=== PATIENT | male | born 1945 | race Caucasian/White ===

== ENCOUNTER 2017-05-11 22:05 | Inpatient (IN) | payer MEDICARE ==
[~2017-05-11] VITALS: Ht 172.7 cm; Wt 108.9 kg
[2017-05-12] MEDS ORDERED: MAG HYDROX/AL HYDROX/SIMETH 30 ML UDC PO PRN (19:00)
[2017-05-12] MEDS ORDERED: MAGNESIUM HYDROXIDE 30 ML UDC PO PRN (19:00)
[2017-05-12] MEDS ORDERED: ACETAMINOPHEN 325 MG TABLET PO PRN (19:00)
[2017-05-12] MEDS ORDERED: LORAZEPAM 0.5 MG TABLET PO PRN (19:00)
[2017-05-12] MEDS ORDERED: GABA600T2 PO (19:02)
[2017-05-12] MEDS ORDERED: ATEN100T PO (19:02)
[2017-05-12] MEDS ORDERED: OMEP20TA5 PO (19:02)
[2017-05-12] MEDS ORDERED: TAMS0.4C34 PO (19:02)
[2017-05-12] MEDS ORDERED: OXYC10TA59 PO (20:08)
[2017-05-12] MEDS: GABAPENTIN 300 MG CAPSULE PO SCH (20:19)
[2017-05-12] MEDS: TAMSULOSIN 0.4 MG CAP.SR.24H PO SCH (21:24)
[2017-05-12 23:14] VITALS: BP 139/70
[2017-05-13] MEDS: HYDROCODONE/APAP 5/325MG 1 EACH TABLET PO PRN (00:50)
[2017-05-13 08:00] VITALS: BP 157/69
[2017-05-13] MEDS: PANTOPRAZOLE 40 MG TABLET.DR PO SCH (08:48)
[2017-05-13] MEDS: NICOTINE PATCH (21MG) 21 MG PATCH.TD24 TD SCH ×2 (08:48→08:50)
[2017-05-13] MEDS: GABAPENTIN 300 MG CAPSULE PO SCH ×3 (08:48→17:03)
[2017-05-13] MEDS: ATENOLOL 50 MG TABLET PO SCH (08:49)
[2017-05-13 09:25] LABS: ALANINE AMINOTRANSFERASE 23 U/L (12-78); ALBUMIN 3.3 g/dL (3.4-5.0); ALKALINE PHOSPHATASE 66 U/L (46-116); ASPARTATE AMINOTRANSFERASE 21 U/L (15-37); BILIRUBIN,TOTAL 0.6 mg/dL (0.2-1.0); CALCIUM, SERUM 8.6 mg/dL (8.5-10.1); CARBON DIOXIDE 25 mmol/L (21-32); CHLORIDE 107 mmol/L (98-107); CREATININE 0.7 mg/dL (0.6-1.3); GLUCOSE 105 mg/dL (74-106); POTASSIUM 3.9 mmol/L (3.5-5.1); SODIUM SERUM 141 mmol/L (136-145); TOTAL PROTEIN, SERUM 6.7 g/dL (6.4-8.2); UREA NITROGEN, BLOOD 11 mg/dL (7-18)
[2017-05-13 09:27] LABS: CHOLESTEROL 122 mg/dL (<200); HDL CHOLESTEROL 41 mg/dL (40-60); LDL 74 mg/dL (0-99); TRIGLYCERIDES 106 mg/dL (30-150)
[2017-05-13] MEDS ORDERED: Z GUARD REMEDY 2 OZ OINT TP PRN (13:00)
[2017-05-13 16:01] VITALS: BP 157/74
[2017-05-13 19:49] VITALS: BP 105/55
[2017-05-13] MEDS: TAMSULOSIN 0.4 MG CAP.SR.24H PO SCH (21:09)
[2017-05-13] MEDS: TRAZODONE 50 MG TABLET PO SCH (21:09)
[2017-05-14 08:00] VITALS: BP 151/70
[2017-05-14] MEDS: ATENOLOL 50 MG TABLET PO SCH (08:29)
[2017-05-14] MEDS: FLUOXETINE HCL 20 MG CAPSULE PO SCH (08:29)
[2017-05-14] MEDS: PANTOPRAZOLE 40 MG TABLET.DR PO SCH (08:29)
[2017-05-14] MEDS: GABAPENTIN 300 MG CAPSULE PO SCH ×3 (08:29→16:50)
[2017-05-14] MEDS: oxyCODONE IR immediate release 5 MG PO PRN ×3 (08:30→21:19)
[2017-05-14] MEDS: NICOTINE PATCH (21MG) 21 MG PATCH.TD24 TD SCH (09:00)
[2017-05-14 16:00] VITALS: BP 132/61
[2017-05-14 20:00] VITALS: BP 124/53
[2017-05-14] MEDS: TAMSULOSIN 0.4 MG CAP.SR.24H PO SCH (21:19)
[2017-05-14] MEDS: TRAZODONE 50 MG TABLET PO SCH (21:19)
[2017-05-14] MEDS: MUPIROCIN OINT 2% 22 GM TUBE SCH (21:19)
[2017-05-15] MEDS: HYDROCODONE/APAP 5/325MG 1 EACH TABLET PO PRN (07:57)
[2017-05-15] MEDS: PANTOPRAZOLE 40 MG TABLET.DR PO SCH (07:57)
[2017-05-15 08:00] VITALS: BP 135/57
[2017-05-15] MEDS: MUPIROCIN OINT 2% 22 GM TUBE SCH ×2 (08:55→22:11)
[2017-05-15] MEDS: GABAPENTIN 300 MG CAPSULE PO SCH ×3 (08:55→16:11)
[2017-05-15] MEDS: FLUOXETINE HCL 20 MG CAPSULE PO SCH (08:55)
[2017-05-15] MEDS: ATENOLOL 50 MG TABLET PO SCH (08:55)
[2017-05-15] MEDS: NICOTINE PATCH (21MG) 21 MG PATCH.TD24 TD SCH (09:00)
[2017-05-15] MEDS: oxyCODONE IR immediate release 5 MG PO PRN ×3 (09:59→23:44)
[2017-05-15 15:18] VITALS: BP 105/64
[2017-05-15 20:00] VITALS: BP 129/61
[2017-05-15] MEDS: TRAZODONE 50 MG TABLET PO SCH (22:11)
[2017-05-15] MEDS: TAMSULOSIN 0.4 MG CAP.SR.24H PO SCH (22:11)
[2017-05-16 08:00] VITALS: BP 124/64
[2017-05-16] MEDS: NICOTINE PATCH (21MG) 21 MG PATCH.TD24 TD SCH (08:44)
[2017-05-16] MEDS: ATENOLOL 50 MG TABLET PO SCH (08:45)
[2017-05-16] MEDS: GABAPENTIN 300 MG CAPSULE PO SCH ×3 (08:45→16:06)
[2017-05-16] MEDS: PANTOPRAZOLE 40 MG TABLET.DR PO SCH (08:45)
[2017-05-16] MEDS: FLUOXETINE HCL 20 MG CAPSULE PO SCH (08:45)
[2017-05-16] MEDS: oxyCODONE IR immediate release 5 MG PO PRN ×3 (08:47→23:50)
[2017-05-16] MEDS: MUPIROCIN OINT 2% 22 GM TUBE SCH ×2 (08:48→21:37)
[2017-05-16 16:00] VITALS: BP 131/79
[2017-05-16 20:00] VITALS: BP 129/57
[2017-05-16] MEDS: TAMSULOSIN 0.4 MG CAP.SR.24H PO SCH (21:35)
[2017-05-16] MEDS: TRAZODONE 50 MG TABLET PO SCH (21:35)
[2017-05-17 08:00] VITALS: BP 142/64
[2017-05-17] MEDS: PANTOPRAZOLE 40 MG TABLET.DR PO SCH (08:22)
[2017-05-17] MEDS: GABAPENTIN 300 MG CAPSULE PO SCH ×3 (08:24→16:12)
[2017-05-17] MEDS: ATENOLOL 50 MG TABLET PO SCH (08:24)
[2017-05-17] MEDS: FLUOXETINE HCL 20 MG CAPSULE PO SCH (08:24)
[2017-05-17] MEDS: NICOTINE PATCH (21MG) 21 MG PATCH.TD24 TD SCH (08:26)
[2017-05-17] MEDS: MUPIROCIN OINT 2% 22 GM TUBE SCH ×2 (09:13→21:10)
[2017-05-17] MEDS: oxyCODONE IR immediate release 5 MG PO PRN ×2 (11:07→20:13)
[2017-05-17 16:00] VITALS: BP 151/71
[2017-05-17 20:08] VITALS: BP 135/85
[2017-05-17] MEDS: TAMSULOSIN 0.4 MG CAP.SR.24H PO SCH (21:45)
[2017-05-17] MEDS: TRAZODONE 50 MG TABLET PO SCH (21:45)
[2017-05-18 08:00] VITALS: BP 129/58
[2017-05-18] MEDS: PANTOPRAZOLE 40 MG TABLET.DR PO SCH (08:36)
[2017-05-18] MEDS: FLUOXETINE HCL 20 MG CAPSULE PO SCH (08:36)
[2017-05-18] MEDS: ATENOLOL 50 MG TABLET PO SCH (08:36)
[2017-05-18] MEDS: GABAPENTIN 300 MG CAPSULE PO SCH ×3 (08:37→16:19)
[2017-05-18] MEDS: NICOTINE PATCH (21MG) 21 MG PATCH.TD24 TD SCH (08:42)
[2017-05-18] MEDS: MUPIROCIN OINT 2% 22 GM TUBE SCH ×2 (08:44→21:20)
[2017-05-18] MEDS: oxyCODONE IR immediate release 5 MG PO PRN ×2 (13:42→21:20)
[2017-05-18 16:00] VITALS: BP 146/72
[2017-05-18 19:38] VITALS: BP 139/75
[2017-05-18] MEDS: TAMSULOSIN 0.4 MG CAP.SR.24H PO SCH (21:19)
[2017-05-18] MEDS: TRAZODONE 50 MG TABLET PO SCH (21:19)
[2017-05-19] MEDS: HYDROCODONE/APAP 5/325MG 1 EACH TABLET PO PRN (06:23)
[2017-05-19] MEDS: PANTOPRAZOLE 40 MG TABLET.DR PO SCH (07:56)
[2017-05-19 08:00] VITALS: BP 124/70
[2017-05-19] MEDS: GABAPENTIN 300 MG CAPSULE PO SCH (08:00)
[2017-05-19] MEDS: FLUOXETINE HCL 20 MG CAPSULE PO SCH (08:00)
[2017-05-19 08:01] VITALS: BP 124/70
[2017-05-19] MEDS: ATENOLOL 50 MG TABLET PO SCH (08:01)
[2017-05-19] MEDS: NICOTINE PATCH (21MG) 21 MG PATCH.TD24 TD SCH (08:02)
[2017-05-19] MEDS: MUPIROCIN OINT 2% 22 GM TUBE SCH (08:02)
== END 2017-05-19 10:30 | disposition home or self-care (01) | DRG 885 ==
LOC: GPS 05-12 17:47
PROVIDERS: ADMIT Psychiatry & Neurology Psychiatry; ATTEND Internal Medicine
PROC: 0HBRXZZ Excision of Toe Nail, External Approach (ICD-10-PCS; principal; 2017-05-14)
DX: F33.2 Major depressive disorder, recurrent severe without psychotic features (principal); F11.20 Opioid dependence, uncomplicated; G62.9 Polyneuropathy, unspecified; R45.851 Suicidal ideations; F29 Unspecified psychosis not due to a substance or known physiological condition; E78.5 Hyperlipidemia, unspecified; G89.4 Chronic pain syndrome; F17.210 Nicotine dependence, cigarettes, uncomplicated; I10 Essential (primary) hypertension; K21.9 Gastro-esophageal reflux disease without esophagitis; L60.3 Nail dystrophy; M21.372 Foot drop, left foot; F10.10 Alcohol abuse, uncomplicated; N40.0 Benign prostatic hyperplasia without lower urinary tract symptoms; Z96.653 Presence of artificial knee joint, bilateral; G47.00 Insomnia, unspecified; M21.172 Varus deformity, not elsewhere classified, left ankle; Z95.2 Presence of prosthetic heart valve; I77.89 Other specified disorders of arteries and arterioles
CPT/HCPCS: 36415; 80053-TC; 80061-TC; 87081-TC; Z7610